=== PATIENT | male | born 2000 | race Caucasian/White ===

== ENCOUNTER 2024-08-06 09:39 | Emergency (ER) | payer OTHER, SELFPAY ==
[2024-08-06 09:54] VITALS: BP 130/81; PULSE 91; RESP 16; TEMP 36.6; O2SAT 100
--- NOTE | 2024-08-06 10:09 | ED_ITS ---
HPI - Back Pain/Injury General Chief Complaint: Back Pain/Injury Stated Complaint: BACK PAIN/PAIN DOWN BOTH LEGS Time Seen by Provider: 08/06/24 10:01 Source: patient Mode of arrival: ambulatory Limitations: no limitations History of Present Illness HPI Narrative: Patient presents today complaining of lower back pain since Saturday. Denies any type of injury. Currently rates his pain a 5/10. He has not been taking anything [id number] medications. No numbness, tingling, or radiation noted. Related Data Allergies Allergy/AdvReac Type Severity Reaction Status Date / Time No Known Allergies Allergy Verified 08/06/24 09:54 Review of Systems Review of Systems: CONSTITUTIONAL: Denies body aches, fever, chills EYES: Denies visual changes CARDIOVASCULAR: Denies chest pain, palpitations, or edema. RESPIRATORY: Denies cough or dyspnea. GASTROINTESTINAL: Denies abdominal pain, nausea, vomiting, or diarrhea. SKIN: Denies rash, itching, or wounds. MUSCULOSKELETAL: Reports low back pain. NEUROLOGIC: Denies headache, numbness, tingling, or weakness. All systems reviewed & are unremarkable except as noted in HPI and below PMFSH Comments At time of signature, I have reviewed and agree with nursing past medical, surgical, social and family history unless otherwise noted. Please see nursing chart for further information. There is no relevant family history pertinent to the presenting complaint. Exam Narrative: GENERAL: Well-appearing, well-nourished, and in no acute distress. HEAD: Normocephalic, atraumatic. EYES: ?conjunctivae clear NECK: Supple. full ROM CHEST: Speaks in full sentences. No respiratory distress. HEART: Regular rate and rhythm. Normal and equal peripheral pulses. MUSC: Vertebral tenderness and paraspinal with palpation from L1-L5 . Bilateral upper and lower extremities with normal strength and sensation, normal range of motion, but endorses pain with palpation. ?No edema or ecchymosis, ? No open wounds, ?skin tenting, ?or obvious deformity; alignment normal, ?pulse palpable and equal bilaterally, skin warm, dry, pink. Capillary refill less than 3 seconds. ?Gait steady. SKIN: Warm, dry, no rash. NEURO: Alert and oriented x3.? Course Course Level of Care: Express Care Visit Vital Signs Vital signs: Vital Signs Temperature 97.9 F 08/06/24 09:54 Pulse Rate 91 04/24/25 09:54 Respiratory Rate 16 08/06/24 09:54 Blood Pressure 130/81 08/06/24 09:54 Pulse Oximetry 100 08/06/24 09:54 Temperature 97.9 F 08/06/24 09:54 Pulse Rate 91 08/06/24 09:54 Respiratory Rate 16 08/06/24 09:54 Blood Pressure 130/81 08/06/24 09:54 Pulse Oximetry 100 08/06/24 09:54 reviewed MDM - Back Pain/Injury MDM Narrative Medical decision making narrative: Discussed physical exam findings. Patient denied imaging. Steroids and Flexeril given for muscle strain. Advised supportive measures and signs/symptoms to go to the ER. Pt is appropriate for outpt treatment and follow up. Differential Diagnosis Differential diagnosis: Likely strain of lumbar region and other (Lumbar radiculopathy, sciatica, piriformis syndrome, diskitis, muscle strain, degenerative joint disease, cauda equina, renal colic) Critical Care Time Critical Care Time Critical Care Time: No Discharge Plan Discharge Clinical Impression: Low back pain Qualifiers: Chronicity: acute Back pain laterality: midline Sciatica presence: without sciatica Qualified Code(s): M54.50 - Low back pain, unspecified Patient Disposition: Home Condition: Stable Instructions: Acute Low Back Pain (ED) Additional Instructions: Take medications as prescribed. Cyclobenzaprine can make you drowsy. Do not operate heavy machinery or drive until you know how this medication effects you. Rest. Avoid pushing, pulling, lifting or anything that worsens the symptoms. You can take Tylenol or ibuprofen for pain. Alternate ice/heat to the site. Lidocaine or salon pas pain patch or use pain cream like icy/hot or biofreeze. Follow up with your primary care provider as needed in 1 week Go to the ER for worsening symptoms or concerns Patient Language: Chinese Prescriptions: New methylprednisolone [Medrol (Geoff)] 4 mg tablets,dose pack See Rx Instructions PO .COMPLEX Qty: 21 0RF Rx Instructions: for 6 days cyclobenzaprine 10 mg tablet 10 mg PO BID Qty: 10 0RF Follow-up/Referrals: PHYSICIAN,AUT[employer]OBILE MECHANIC APPRENTICE [Primary Care Provider] - Time of Disposition: 10:15
== END 2024-08-06 10:21 | disposition home or self-care (01) ==
DX: M54.50 Low back pain, unspecified (principal); Q76.49 Other congenital malformations of spine, not associated with scoliosis
CPT/HCPCS: 99203; G0463